=== PATIENT | male | born 1955 | race Caucasian/White ===

== ENCOUNTER 2021-09-05 23:59 | Inpatient (IN) | payer OTHER ==
[~2021-09-05] VITALS: Ht 177.8 cm; Wt 82.6 kg
[2021-09-06 00:16] LABS: HEMOGLOBIN 12.1 gm/dl (14.0-17.5); RED BLOOD COUNT 3.6 M/UL (4.20-5.50); WHITE BLOOD COUNT 12.1 K/UL (4.5-11.0)
[2021-09-06 00:37] LABS: BUN/CREATININE RATIO 39 (0-10)
[2021-09-06 06:03] LABS: HEMOGLOBIN 10.3 gm/dl (14.0-17.5)
[2021-09-06 06:08] LABS: RED BLOOD COUNT 3.11 M/UL (4.20-5.50); WHITE BLOOD COUNT 8.7 K/UL (4.5-11.0)
[2021-09-06 06:36] LABS: BUN/CREATININE RATIO 40 (0-10)
[2021-09-06] MEDS ORDERED: ACETAMINOPHEN-1 EAC1 PO (10:14)
[2021-09-06] MEDS ORDERED: GABAPENTIN800 MG PO (10:14)
[2021-09-06] MEDS ORDERED: ESOMEPRAZOLE MA40 MG PO (10:15)
[2021-09-06] MEDS ORDERED: LOSARTAN POTASS50 MG PO ×2 (10:15→10:16)
[2021-09-06] MEDS ORDERED: PRAVASTATIN SOD40 MG PO (10:18)
[2021-09-06] MEDS ORDERED: AMITRIPTYLINE H50 MG PO (10:19)
[2021-09-06] MEDS ORDERED: RANOLAZINE ER1000 MG PO (10:21)
[2021-09-06] MEDS ORDERED: MELOXICAM15 MG PO (10:22)
[2021-09-06] MEDS ORDERED: FUROSEMIDE40 MG PO (10:22)
[2021-09-06] MEDS ORDERED: CLOPIDOGREL75 MG PO (10:23)
[2021-09-06] MEDS ORDERED: NITROGLYCERIN0.4 MG SL (10:23)
[2021-09-06] MEDS ORDERED: METOPROLOL TART50 MG PO (10:24)
[2021-09-06] MEDS ORDERED: ASPIRIN EC81 MG PO (10:25)
[2021-09-06 20:53] LABS: CANDIDA ALBICANS Not Detected (Negative); CANDIDA KRUSEI Not Detected (Negative); CANDIDA TROPICALIS Not Detected (Negative); ESCHERICHIA COLI Not Detected (Negative); HAEMOPHILUS INFLUENZAE Not Detected (Negative); KLEBSIELLA OXYTOCA Not Detected (Negative); KLEBSIELLA PNEUMONIAE Not Detected (Negative); KPC-CARBAPENEM-RESISTANCE GENE Not Detected (Negative); PROTEUS Not Detected (Negative); PSEUDOMONAS AERUGINOSA Not Detected (Negative); SERRATIA MARCESANS Not Detected (Negative); STAPHYLOCOCCUS AUREUS Not Detected (Negative); STREP AGALACTIAE (GROUP B) Not Detected (Negative); STREP PYOGENES (GROUP A) Not Detected (Negative); STREPTOCOCCUS Not Detected (Negative); vanA/B (VANCOMYCIN RESIST GENE Not Detected (Negative)
[2021-09-06 22:06] LABS: STAPHYLOCOCCUS DETECTED (Negative)
[2021-09-07 02:37] LABS: HEMOGLOBIN 9.6 gm/dl (14.0-17.5); RED BLOOD COUNT 2.88 M/UL (4.20-5.50)
[2021-09-07 02:38] LABS: WHITE BLOOD COUNT 5.9 K/UL (4.5-11.0)
[2021-09-07 03:14] LABS: BUN/CREATININE RATIO 25 (0-10)
--- NOTE | 2021-09-07 05:34 | NUR ---
09/06/2021 2220: NOTIFIED DR WILLIAMSON OF POSITIVE BLOOD CULTURES GROWING GRAM POSITIVE COCCI. PT RECIEVING ROCEPHIN AND ZITHROMAX. RECIEVED NO NEW ORDERS. WILL CONTINUE TO MONITOR.
[2021-09-07] MEDS ORDERED: PROTONIX40 MG PO (09:57)
[2021-09-07] MEDS ORDERED: LEVOFLOXACIN500 MG PO (09:57)
== END 2021-09-07 15:30 | disposition home or self-care (01) | DRG 193 ==
LOC: ER1 23:59 → CDU 09-06 01:54 → M/S 09-06 08:30
PROVIDERS: Family Medicine; Internal Medicine; Surgery; ADMIT Internal Medicine
PROC: 0DB78ZX Excision of Stomach, Pylorus, Via Natural or Artificial Opening Endoscopic, Diagnostic (ICD-10-PCS; principal; 2021-09-07 11:10)
DX: J18.9 Pneumonia, unspecified organism (principal); J96.01 Acute respiratory failure with hypoxia; N17.9 Acute kidney failure, unspecified; Z20.822 Contact with and (suspected) exposure to COVID-19; J44.0 Chronic obstructive pulmonary disease with (acute) lower respiratory infection; J98.11 Atelectasis; K52.9 Noninfective gastroenteritis and colitis, unspecified; I25.10 Atherosclerotic heart disease of native coronary artery without angina pectoris; I10 Essential (primary) hypertension; K29.70 Gastritis, unspecified, without bleeding; G47.33 Obstructive sleep apnea (adult) (pediatric); E86.0 Dehydration; F17.210 Nicotine dependence, cigarettes, uncomplicated; I95.9 Hypotension, unspecified; Z79.82 Long term (current) use of aspirin; Z95.5 Presence of coronary angioplasty implant and graft; Z82.49 Family history of ischemic heart disease and other diseases of the circulatory system; Z87.81 Personal history of (healed) traumatic fracture; Z99.81 Dependence on supplemental oxygen
CPT/HCPCS: 0240U; 36600; 71045; 71046; 80048; 80053; 81001; 82272; 82550; 82553; 82803; 83605; 83735; 83880; 84100; 84484; 85025; 85027; 85610; 86140; 87040; 87045; 87046; 87077; 87086; 87150; 87186; 88342; 93005; 94640; 94660; 94664; 94760; 96374; 99285; C9113; J0456; J0696; J1650; J2704; J7030; J7040